=== PATIENT | female | born 1975 | race Caucasian/White ===

== ENCOUNTER → 2017-11-05 | Outpatient (CLI) | payer OTHER ==
[~2017-11-05] MED LIST: HYDROCHLOROTHIA25 M2 PO
== END ==
LOC: M.RAD 09:30
DX: Z12.31 Encounter for screening mammogram for malignant neoplasm of breast (principal)

== ENCOUNTER → 2018-10-29 | Outpatient (CLI) | payer OTHER | LOC: M.RAD 09:52 | DX: Z12.31 Encounter for screening mammogram for malignant neoplasm of breast (principal) ==

== ENCOUNTER → 2019-02-16 | Outpatient (CLI) | payer OTHER | LOC: M.MRI 13:20 | DX: Z91.89 Other specified personal risk factors, not elsewhere classified (principal) ==

== ENCOUNTER → 2019-08-07 | Outpatient (CLI) | payer OTHER | LOC: M.ULTRA 12:51 | DX: N63.24 Unspecified lump in the left breast, lower inner quadrant (principal); Z80.3 Family history of malignant neoplasm of breast ==

== ENCOUNTER → 2019-08-14 | Outpatient (CLI) | payer OTHER ==
--- NOTE | 2019-08-18 12:06 | PATH ---
[address] [address] PATHOLOGY RPT PROCEDURE Name: MUNA COWART Room: [facility] Garcia#: [id number] Admission: 08/14/19 Date of : 79 Discharge: Report #: [id number] Path Case #: [id number] [facility] Accession Number: [id number] . 01 Material submitted: . breast - LEFT BREAST BIOPSY, 7:00, 3CMFN. Modifiers: left . 01 Clinical history: . 0.53 x 0.65 x 0.39 cm Left breast biopsy 7:00 3 cm from nipple . 02 Diagnosis: Left breast biopsy 7:00, 3:00 cm from nipple: - Benign breast tissue with small ductal papilloma and usual ductal epithelial hyperplasia, negative for atypia. (See comment) . (BOUCHRA:fazal; 08/17/2019) QLM 08/17/2019 1106 Local . 02 Comment: A discrete vaguely nodular focus of benign fibroepithelial tissues spanning 5 mm is seen in A1 and it has features of a small ductal papilloma within it. . Reviewed with Dr. Melvin Blandon, who agrees with the diagnosis. . (BOUCHRA:mmaric; 08/17/2019) . 02 Electronically signed: . Rusty Piña MD, Pathologist NPI- [id number] . 01 Gross description: . The specimen is received in formalin, labeled "Mnua Cowart, left breast biopsy 7:00 3 cm from nipple". Received are multiple needle cores of fibrofatty tissue measuring 2.4 x 1.2 x 0.4 cm in aggregate dimensions. The specimen is submitted entirely in cassettes A1 through A3. The cold ischemic time is 2 minutes. The total formalin fixation time is 12 hours and 30 minutes. ([facility]; 08/14/2019) QAC/QA 08/14/2019 1641 Local . 02 Pathologist provided ICD-10: D24.2, N62 . 02 CPT . [id number] [place] [address] PATHOLOGY RPT PROCEDURE Name: MUNA COWART Room: [facility].#: [id number] Admission: 08/14/19 Date of : 79 Discharge: Report #: [id number] Path Case #: [id number] Specimen Comment: A courtesy copy of this report has been sent to [phone] Specimen Comment: [phone], Specimen Comment: Report sent to ,DR CAMPOS / DR KING Performed at: [address], [place], [place] [id number] MD Evin Espinoza MD Phone: [phone] Performed at: 02 [facility] [address], [place], [place] [id number] MD Rusty Piña MD Phone: [phone]
== END | disposition home or self-care (01) ==
LOC: M.ULTRA 07:58
DX: D24.2 Benign neoplasm of left breast (principal); R92.1 Mammographic calcification found on diagnostic imaging of breast; N62 Hypertrophy of breast; Z98.890 Other specified postprocedural states; Z79.899 Other long term (current) drug therapy

== ENCOUNTER → 2019-09-24 | Outpatient (CLI) | payer OTHER ==
[~2019-09-24] MED LIST changes: +BETAHISTINE PO; +TRAMADOL 50 MG50 MG PO; +TRIAMTERENE/HCT1 CA1 PO
== END | disposition home or self-care (01) ==
LOC: M.ULTRA 13:22 → M.RAD 09-29 08:00 → M.ULTRA 09-29 08:00
DX: N63.20 Unspecified lump in the left breast, unspecified quadrant (principal); Z79.899 Other long term (current) drug therapy

== ENCOUNTER → 2019-09-29 | Day surgery (SDC) | payer OTHER ==
[2019-09-29 08:06] LABS: HEMATOCRIT 34.7 % (37.0-47.0); HEMOGLOBIN 12.9 gm/dL (12.0-15.0)
[2019-09-29 08:14] LABS: CALCIUM 8.7 mg/dL (8.5-10.1); CREATININE 0.7 mg/dL (0.6-1.3)
--- NOTE | 2019-09-29 11:01 | OP ---
[address] [address] OPERATIVE REPORT Name: SOFYABYRON April Room: [facility]#: [id number] Admission: 09/29/19 Attend Phys: Petra Rader DO Discharge: Date of : 79 Report #: [id number] THIS REPORT FOR: //name// cc: Tiffanie Low NP, Stefany NP ~ THIS REPORT FOR: //name// CC: Petra Low CELLARS SUPERVISOR DICTATED BY: Virginia Echavarria DO DATE OF SERVICE: 09/29/2019 PREOPERATIVE DIAGNOSIS: Left breast intraductal papilloma. POSTOPERATIVE DIAGNOSIS: Left breast intraductal papilloma. PROCEDURE PERFORMED: Left breast clip localized lumpectomy. PRIMARY SURGEON: Petra Rader DO POULTRY FARM SUPERVISOR: Virginia Echavarria DO, PGY-2 SECOND MESSENGER COPY: Arnav Benson MS3 ANESTHESIA: General and local. ESTIMATED BLOOD LOSS: 5 mL. FINDINGS: Successful clip localized left breast lumpectomy. Both the biopsy clip and the localizing clip were present in the surgical specimen after it was sent to mammography. COMPLICATIONS: None. INDICATIONS: The patient is a pleasant 43-year-old female who presented to our office with complaint of a left breast mass. Mass has been present for approximately 6 months. She underwent subsequent imaging and biopsy showed intraductal papilloma. It was recommended that she undergo a clip localized left breast lumpectomy. The procedure, risks, benefits, and possible complications to include bleeding, infection, injury to surrounding structures, need for additional surgery, breast asymmetry, seroma or hematoma formation, risks of anesthesia, and other risks of surgery were discussed with the patient in great detail. She voiced complete understanding [place] [address] OPERATIVE REPORT Name: BYRON COWART Room: [facility]#: [id number] Admission: 09/29/19 Attend Phys: Petra Rader DO Discharge: Date of : 79 Report #: [id number] surgery. DESCRIPTION OF PROCEDURE: Informed consent was obtained. The patient was taken to the operating room and placed supine on the operating room table. Preoperative antibiotics were given. SCDs were placed on bilateral lower extremities. General LMA anesthesia was induced without difficulty. The left breast and surrounding tissues were prepped and draped in the standard sterile fashion. Timeout was performed to ensure correct patient and procedure. The handheld localizer was brought into the field and used to identify the approximate location of the previously placed localizing clip, appeared to be in the same areas of previously performed biopsy. We began by injecting approximately 10 mL of 0.5% Marcaine in the planned surgical site. An approximately 3 cm incision was made over previous biopsy site. Incision was carried down through the subcutaneous tissues using electrocautery. Allis was used to grasp the breast tissue. We continued our dissection down toward the chest wall using electrocautery utilizing the loop localizer for guidance along the way. Specimen was completely excised using electrocautery. A clip localizer was used to ensure that the clip was present within the specimen. The closest margin appeared to be the inferior margin. We marked the specimen using a short stitch superior and long stitch lateral. This was passed off and placed in the transplant container and sent to Radiology for imaging. We elected to take an additional inferior margin at this point since that appeared to be her closest margin, approximately 2-3 mm. Additional inferior margin was excised using electrocautery. This was also marked with a short stitch superior and long stitch lateral and was passed off for permanent specimen. Her lumpectomy specimen returned from Radiology. Both the biopsy clip and localizing clip appeared to be contained within the specimen. Radiologist called back to confirm this. The wound was then irrigated with sterile saline. We inspected the wound to ensure hemostasis. The subcutaneous tissues were then closed using 3-0 Vicryl in a simple interrupted and inverted fashion. An additional 20 mL of 0.5% Marcaine were used for local anesthesia. Skin was closed using 4-0 Monocryl suture in a running subcuticular fashion. Skin was cleansed and dried. Sterile dressings were applied using Mastisol, Steri-Strips, 4 x 4's, and a Tegaderm. The patient tolerated the procedure very well. She was allowed to awaken in the operating room and she was transferred to the PACU in stable condition with plans to discharge home later today. <ELECTRONICALLY SIGNED> By: Petra Rader DO 09/29/19 1101 1009 1029Petra Rader DO /bakari
--- NOTE | 2019-10-02 13:08 | PATH ---
[address] [address] PATHOLOGY RPT PROCEDURE Name: MUNA COWART Room: [facility].#: [id number] Admission: 09/29/19 Date of : 79 Discharge: Report #: [id number] Path Case #: [id number] [facility] Accession Number: [id number] . 01 Material submitted: . PART A: breast - LEFT BREAST TISSUE. Modifiers: left PART B: breast - LEFT BREAST INFERIOR MARGIN. Modifiers: left . 01 Clinical history: . Left breast intraductal papilloma . A., B.: Stitch long lateral, short superior . 02 Diagnosis: A. Left breast tissue: - Benign breast tissue with ductal papilloma and florid usual ductal epithelial hyperplasia near prior biopsy site (including metallic clip and plastic/copper biopsy marker), negative for atypia. . B. Inferior margin, left breast: - Benign breast tissue consisting predominantly of fat, negative for atypia. . (BOUCHRA:mmaric; 10/01/2019) QL 10/01/2019 1715 Local . 02 Electronically signed: . Rusty Piña MD, Pathologist NPI- [id number] . 01 Gross description: . A. The specimen is received in formalin, labeled "Aric Arias breast tissue, long stitch lateral, short stitch superior". Received in a radiograph compression plate is an 11 g lumpectomy specimen oriented with a short suture designating the superior margin and a long suture designating the lateral margin. The specimen measures 4.5 cm from superior to inferior, 4.1 cm from medial to lateral, and 0.9 cm from anterior to posterior. The specimen is inked as follows: Superior-blue, inferior-green, lateral-red, medial-yellow, anterior-black, posterior-orange. Sectioning reveals a previous biopsy site, with a metallic clip as well as a plastic and copper biopsy marker, measuring 1.8 x 0.9 x 0.5 cm in greatest dimensions. This site is 0.4 cm from the inferior margin, 2.4 cm from the superior margin, 0.2 cm from the anterior margin, 0.1 cm from the posterior margin, 0.8 cm from the medial margin, and 1.4 cm from the lateral margin. Residual tumor is not grossly distinct. The remainder of the specimen displays bright yellow fibrofatty cut surfaces with no grossly distinct nodules or lesions. The specimen is submitted entirely from superior to inferior aspects in cassettes A1 [place] [address] PATHOLOGY RPT PROCEDURE Name: SOFYAMUNA Room: [facility]#: [id number] Admission: 09/29/19 Date of : 79 Discharge: Report #: [id number] Path Case #: [id number] through A15. The sections in cassettes A3 through A12 are additionally bisected into medial and lateral aspects. The previous biopsy site is submitted in cassettes A9 through A14. The cold ischemic time is 27 minutes. The total formalin fixation time is 36 hours and 35 minutes. . B. The specimen is received in formalin, labeled "Muna Andes, inferior margin L breast, short superior, long lateral". Received is a 5 g lumpectomy specimen oriented with a short suture designating the superior margin and a long suture designating the lateral margin. The specimen measures 3.0 cm from medial to lateral, 2.7 cm from superior to inferior, and 1.5 cm from anterior to posterior. The specimen is inked as follows: Superior-blue, inferior-green, lateral-red, medial-yellow, anterior-black, posterior-orange. Sectioning reveals bright yellow, lobulated cut surfaces throughout with no grossly distinct nodules or lesions. The specimen is submitted entirely from medial to lateral aspects in cassettes B1 through B10. The cold ischemic time and time in formalin are not provided. The time out of formalin is 11:40 p.m. on 09/30/2019. ([facility]; 09/30/2019) QAC/QAC 10/01/2019 1712 Local . 02 Pathologist provided ICD-10: D24.2, N62 . 02 CPT . [id number], [id number] Specimen Comment: A courtesy copy of this report has been sent to [phone] Specimen Comment: Report sent to Performed at: [address], [place], [place] [id number] MD Evin Espinoza MD Phone: [phone] Performed at: 02 [facility] [address] [place] , [place], [place] [id number] MD Rusty Piña MD Phone: [phone]
== END | disposition home or self-care (01) ==
LOC: M.SUR 06:29
PROVIDERS: Surgery
DX: D24.2 Benign neoplasm of left breast (principal); N62 Hypertrophy of breast; Z98.890 Other specified postprocedural states; Z79.899 Other long term (current) drug therapy

== ENCOUNTER → 2020-12-14 | Outpatient (CLI) | payer OTHER | LOC: M.RAD 11:59 | PROVIDERS: ATTEND Nurse Practitioner Family | DX: Z12.31 Encounter for screening mammogram for malignant neoplasm of breast (principal) ==